=== PATIENT | male | born 1970 | race Hispanic/Latino ===

== ENCOUNTER 2018-11-10 12:36 | Outpatient (CLI) | payer MEDICAID ==
[2018-11-10 13:25] LABS: Blood Urea Nitrogen 14 mg/dL (9-20)
--- NOTE | 2018-11-10 14:48 | Cat Scan Report ---
CT SOFT TISSUE NECK 11/10/2018 HISTORY: CERVICAL ADENITIS, NECK SOFT TISSUE W/ AND W/OUT TECH NOTE; KNOT ON RIGHT SIDE. AREA OF INTE REST MARKED CONTRAST: OMNI 300/100 FINDINGS: Unenhanced and enhanced CT images of the soft tissues of neck were obtained. Images are nicolette luated in the axial, coronal, and sagittal planes. No previous studies are available here for comparison. There are 2 large abnormal soft tissue masses in the right side of the neck, consistent with abnormal lymph nodes. They extend downward from the level of the angle of the mandible to the level of the la teral aspect of the larynx. These markedly enlarged lymph nodes have overall size of 2.9 cm and 3.0 c m. There is asymmetric soft tissue prominence in the posterior nasopharynx, with more prominent soft tis dinora in the region of the right lateral posterior nasopharynx, best seen on axial images 22-27. Althou gh this could be the result of asymmetric benign lymphoid hyperplasia, in combination with the promin ent right cervical lymph nodes, the possibility of neoplasm was be considered as well. Direct visuali zation would be helpful for further evaluation at this location. Soft tissue structures in the remainder of the neck are unremarkable. IMPRESSION: 1. 2 large right sided lymph nodes as described above, maximum length of 3 cm. 2. Soft tissue fullness in the right posterior nasopharynx. All CT scans at this location are performed using dose reduction to ALARA by means of automated expos ure control. Signer Name: Jose Manuel Jacobson MD Signed: 11/10/2018 2:43 PM Workstation Name: [id number]
== END 2018-11-10 12:37 | disposition home or self-care (01) ==
LOC: CT 12:36
PROVIDERS: ATTEND Otolaryngology
DX: I88.9 Nonspecific lymphadenitis, unspecified (principal)
CPT/HCPCS: 36415; 70492; 82565; 84520; Q9967